=== PATIENT | male | born 1980 | race Caucasian/White ===

== ENCOUNTER 2017-06-02 10:58 | Emergency (ER) | payer OTHER ==
[~2017-06-02] VITALS: Ht 165.1 cm; Wt 115.0 kg
[2017-06-02 11:24] LABS: HEMATOCRIT 41.8 % (38.0-50.0); HEMOGLOBIN 14.1 G/DL (12.5-16.6); MCH 26.8 PG (29.0-34.0); MCHC 33.7 G/DL (30.0-36.0); MCV 79.5 FL (86-99); PLATELET COUNT 294 K/uL (156-360); RBC DIS.WIDTH-CV 14.7 % (11.8-14.6); RBC DIS.WIDTH-SD 42.6 % (39-53); RED BLOOD COUNT 5.26 M/uL (4.00-5.50); WHITE BLOOD COUNT 10.4 K/uL (4.1-10.2)
[2017-06-02 11:32] LABS: CHLORIDE 102 mEq/L (99-109); POTASSIUM 4.1 mEq/L (3.7-5.4); SODIUM 138 mEq/L (136-147)
[2017-06-02 11:34] LABS: GLUCOSE 105 mg/dL (70-99)
[2017-06-02 11:38] LABS: CREATININE 0.9 mg/dL (0.6-1.3)
[2017-06-02 11:39] LABS: UREA NITROGEN (BUN) 22 mg/dL (9-23)
[2017-06-02 11:40] LABS: GFR ESTIMATE (CALCULATED) > 59 mL/min/ (58.99-99999)
[2017-06-02 11:51] LABS: D-DIMER ELISA < 150.00 ng/mLDDU (<230)
[2017-06-02 12:02] LABS: TROP-I INTERPRETATION NEGATIVE; TROPONIN-I < 0.01 ng/mL (0.0-0.30)
[2017-06-02 13:26] VITALS: BP 109/49
== END 2017-06-02 13:27 | disposition home or self-care (01) ==
LOC: EME 10:58
PROVIDERS: Emergency Medicine
DX: R42 Dizziness and giddiness (principal); F17.200 Nicotine dependence, unspecified, uncomplicated
CPT/HCPCS: 80048; 84484; 85027; 85379; 93005; 99281; 99284